=== PATIENT | male | born 1945 | race Caucasian/White ===

== ENCOUNTER → 2017-02-22 | Outpatient (CLI) | payer MEDICARE, BC ==
[~2017-02-22] MED LIST: ACIP20TA19; ALTA10CA10 PO; ASPI81; ATEN50TA PO; ATOR10; ATOR20TA15 PO; CALC1TAB87 PO; CENTTAB PO; LEXA10TA PO; META48.53 PO; NIFE30TA8 PO; PRIL20CA9 PO; RAMI10CA; VITA10002; VITA500S3 SL; VITA500T10
--- NOTE | 2017-02-25 21:41 | HM ---
Date Performed: 02/23/2017 Time Performed: 08:22:00 HOOKUP DATE: 02/23/17 08:22:00 AM Fri ANALYSIS START TIME: 02/23/2017 8:27:00 AM ANALYSIS END TIME: 02/24/2017 8:29:03 AM PATIENT AGE: 72 PATIENT HEIGHT PATIENT WEIGHT DRUG LIST PATIENT DIAGNOSIS: SYNCOPE TEST NARRATIVE: The patient's average heart rate was 63 BPM. Heart rates greater than 120 B PM were noted < 1% of the time. Heart rates less than 50 BPM were noted 9% of the time. No pause s exceeding 2.0 seconds were noted. 1 ventricular ectopics, which represented < 1% of the total b eat count, were noted. The highest ventricular ectopic frequency occurred from 09:00 PM to 10:00 PM Fri. During this time 1 VE(s) occurred. Ventricular ectopics were observed as 1 isolated beat(s) on ly. No couplets or runs were noted. 15 supraventricular ectopics, which represented < 1% of the total beat count, were noted. The highest supraventricular ectopic frequency occurred from 04:00 AM to 05:00 AM Sat. During this time 5 SVE(s) occurred. No episodes of ST depression (defined as -1 .0 mm or more) were noted in channel 1. No episodes of ST depression (defined as -1.0 mm or more) we re noted in channel 2. No episodes of ST depression (defined as -1.0 mm or more) were noted in chann el 3. TEST INTERPRETATION: Sinus rhythm PACs 2 short burst of SVT at a maximum rate of 130bpm observed. They were less than 5 sec No pause N o ventricular tachycardia observed Signed by : Latoya Vieira
== END ==
LOC: HCAV 08:35
PROVIDERS: ATTEND Family Medicine
DX: R55 Syncope and collapse (principal)
CPT/HCPCS: 93225; 93226

== ENCOUNTER 2017-03-04 12:27 | Observation (INO) | payer MEDICARE, BC ==
[~2017-03-04] VITALS: Ht 180.3 cm; Wt 82.0 kg
[2017-03-04] VITALS (8 sets, daily range): BP systolic 155–210; BP diastolic 61–89; PULSE 63–68; RESP 16–20; TEMP 97.6–97.8; O2SAT 97–100
[~2017-03-04 12:27] MED LIST changes: -ALTA10CA10 PO; -ATEN50TA PO; -ATOR20TA15 PO; -CALC1TAB87 PO; -CENTTAB PO; -LEXA10TA PO; -META48.53 PO; -NIFE30TA8 PO; -PRIL20CA9 PO; -VITA500S3 SL
[2017-03-04] MEDS ORDERED: SODIUM CHLOR 0.9% 1000 ML INJ 1,000 ML IV ONE (12:57)
--- NOTE | 2017-03-04 12:58 | PD ---
HPI Chief Complaint: Syncope/Near-Syncope Time Seen by Provider: 12:58 Travel History International Travel<30 days: No Contact w/Intl Traveler<30days: No Traveled to known affect area: No History of Present Illness HPI 72-year-old male with a history of hypertension, CAD, CABG 1 presents to the emergency department for evaluation of syncopal episode. The patient states that while he was in buddhist today he went from a standing to a sitting position and passed out for approximately 5 seconds. States that he had been standing singing him and was asymptomatic and the next thing he knew he had passed out onto the buddhist pew. Patient is accompanied by his neighbor who was sitting next to him what this occurred and states that it only lasted for 5 seconds, patient did not fall or hit his head, states he kind of leaned to the side and passed out on the pew. The patient denies any preceding symptoms of chest pain , shortness of breath, lightheadedness, dizziness, nausea, vomiting, numbness or tingling, weakness, bloody stool, black stool. States that he had a similar syncopal episode 3 weeks ago for which she saw his PCP Dr. Sibley. States that he had an outpatient head CT, carotid ultrasound and Holter monitor and was not called with any of the results. The patient states that he has been feeling well overall. Went for a 5 mile bike ride this morning, states that he rides a bicycle 8 miles every day. He does state that he has a tingling sensation on the right side of his head that has been going on for several years and has been evaluated as an outpatient and found to be unremarkable. No other complaints. PFSH Past Medical History High Cholesterol: Yes (CHOLESTEROL FINE NOW (PER PT) - HAS BEEN TAKING LIPITOR. ) Diminished Hearing: No Hypertension: Yes Past Surgical History Coronary Artery Bypass Graft: Yes (2001) Social History Alcohol Use: No Tobacco Use: No Allergies-Medications (Allergen,Severity, Reaction): Coded Allergies: Sulfa (Verified Adverse Reaction, Mild, NAUSEA, 03/04/17) Reported Meds & Prescriptions Reported Meds & Active Scripts Active Reported Altace (Ramipril) 10 Mg Cap 10 Mg PO DAILY Atorvastatin (Atorvastatin Calcium) 20 Mg Tab 20 Mg PO HS Lexapro (Escitalopram Oxalate) 10 Mg Tab 10 Mg PO BID Calcium 600 with Vitamin D (Calcium Carbonate-Cholecalciferol) 600-400 mg-Unit Tab 1 Tab PO BID Metamucil Original Texture (Psyllium Hydrophilic Mucilloid) 48.57 % Pow 1 Scoop PO TID PRN 1 rounded TEASPOON in 8 oz of liquid at the first sign of irregularity. Prilosec (Omeprazole) 20 Mg Cap 20 Mg PO DAILY Atenolol 50 Mg Tab 50 Mg PO DAILY Vitamin B-12 (Cyanocobalamin) 500 Mcg Subl 500 Mcg SL DAILY Centrum Silver (Multiple Vitamins W/ Minerals) 1 Tab 1 Tab PO DAILY Review of Systems Except as stated in HPI: all other systems reviewed are Neg Physical Exam Narrative GENERAL: Well-nourished and well-developed pleasant male patient in no acute distress who is nontoxic appearing. SKIN: Warm and dry. HEAD: Normocephalic and atraumatic. EYES: No injection, drainage, or hyphema noted. PERRLA. EOMI. ENT: No nasal drainage noted. Oropharynx is clear. NECK: Supple and the trachea is midline. CARDIOVASCULAR: Regular rate and rhythm. RESPIRATORY: Breath sounds are equal bilaterally with no accessory muscle use, wheezing, rhonchi, or crackles. GASTROINTESTINAL: Abdomen is soft, non-tender, and nondistended. MUSCULOSKELETAL: No obvious deformities, swelling, cyanosis, or ecchymosis is present throughout the upper and lower extremities. Patient has full range of motion without any signs of neurovascular compromise. Strength 5/5 upper and lower extremities equal bilaterally. NEUROLOGICAL: Awake, alert, and oriented. Normal speech and gait. Cranial nerves are grossly intact. Data Data Last Documented VS Vital Signs Date Time Temp Pulse Resp B/P Pulse Ox O2 Delivery O2 Flow Rate FiO2 03/04/17 13:18 65 16 172/83 03/04/17 12:47 98 03/04/17 12:31 97.6 Orders Electrocardiogram (03/04/17 12:57) Complete Blood Count With Diff (03/04/17 12:57) Comprehensive Metabolic Panel (03/04/17 12:57) Magnesium (Mg) (03/04/17 12:57) Troponin I (03/04/17 12:57) Chest, Single Ap (03/04/17 12:57) Ecg Monitoring (03/04/17 12:57) Iv Access Insert/Monitor (03/04/17 12:57) Oximetry (03/04/17 12:57) Sodium Chloride 0.9% Flush (Ns Flush) (03/04/17 13:00) Sodium Chlor 0.9% 1000 Ml Inj (Ns 1000 M (03/04/17 12:57) Orthostatic Vital Signs (03/04/17 13:03) Place In Observation (03/04/17 ) Vital Signs (Adult) Q4H (03/04/17 14:16) Activity Oob With Assistance (03/04/17 14:16) Superintendent Pressure / Telemetry .CONTINUOUS (03/04/17 14:16) Diet Regular Basic (03/04/17 Dinner) Sodium Chlor 0.9% 1000 Ml Inj (Ns 1000 M (03/04/17 15:00) Sodium Chloride 0.9% Flush (Ns Flush) (03/04/17 14:30) Sodium Chloride 0.9% Flush (Ns Flush) (03/04/17 21:00) Acetaminophen (Tylenol) (03/04/17 14:30) Ondansetron Inj (Zofran Inj) (03/04/17 14:30) Magnesium Hydroxide Liq (Milk Of Magnesi (03/04/17 14:30) Basic Metabolic Panel (Bmp) (03/05/17 06:00) Complete Blood Count With Diff (03/05/17 06:00) Resp Oxygen Brandan C Titrat 1-4 L (03/04/17 ) Pt Request For Service (03/04/17 14:16) Scd Bilateral/Knee High SHERI.BID (03/04/17 14:16) Naloxone Inj (Narcan Inj) (03/04/17 14:30) Admit Order (Ed Use Only) (03/04/17 14:16) Echo 2d Comp W/Dopp(Routine) (03/04/17 ) Labs Laboratory Tests Test 03/04/17 13:10 White Blood Count 11.6 TH/MM3 Red Blood Count 4.42 MIL/MM3 Hemoglobin 14.3 GM/DL Hematocrit 41.4 % Mean Corpuscular Volume 93.9 FL Mean Corpuscular Hemoglobin 32.5 PG Mean Corpuscular Hemoglobin 34.6 % Concent Red Cell Distribution Width 13.1 % Platelet Count 240 TH/MM3 Mean Platelet Volume 8.7 FL Neutrophils (%) (Auto) 89.4 % Lymphocytes (%) (Auto) 5.1 % Monocytes (%) (Auto) 4.6 % Eosinophils (%) (Auto) 0.5 % Basophils (%) (Auto) 0.4 % Neutrophils # (Auto) 10.4 TH/MM3 Lymphocytes # (Auto) 0.6 TH/MM3 Monocytes # (Auto) 0.5 TH/MM3 Eosinophils # (Auto) 0.1 TH/MM3 Basophils # (Auto) 0.0 TH/MM3 CBC Comment DIFF FINAL Differential Comment Sodium Level 137 MEQ/L Potassium Level 4.1 MEQ/L Chloride Level 103 MEQ/L Carbon Dioxide Level 27.8 MEQ/L Anion Gap 6 MEQ/L Blood Urea Nitrogen 13 MG/DL Creatinine 1.14 MG/DL Estimat Glomerular Filtration 63 ML/MIN Rate Random Glucose 122 MG/DL Calcium Level 9.3 MG/DL Magnesium Level 2.2 MG/DL Total Bilirubin 0.5 MG/DL Aspartate Amino Transf 23 U/L (AST/SGOT) Alanine Aminotransferase 29 U/L (ALT/SGPT) Alkaline Phosphatase 87 U/L Troponin I LESS THAN 0.02 NG/ML Total Protein 7.6 GM/DL Albumin 4.1 GM/DL [facility] Medical Decision Making Medical Screen Exam Complete: Yes Emergency Medical Condition: Yes Differential Diagnosis Dehydration versus electrolyte abnormality versus orthostatic hypotension versus arrhythmia versus other Narrative Course 72-year-old male presents to the emergency department for evaluation of syncopal episode. Patient is afebrile. He is initially noted to be hypertensive with a blood pressure 210/89. Otherwise vital signs within normal limits. Physical examination is unremarkable. Patient is very well overall. IV access is obtained, labs were drawn and sent. Patient is placed on cardiac telemetry and pulse oximetry monitoring. I did review the MR which shows he had a Holter monitor 02/22/17 which showed sinus rhythm with PACs, too short bursts of SVT with a max heart rate of 130 bpm lasting less than 5 seconds, no positive, no V. tach. I was able to look up his head CT and carotid ultrasound on [facility]. His Head CT without contrast performed was negative for any acute abnormalities. Ultrasound of the carotid arteries 02/22/17 which shows echogenic atherosclerotic plaque in each carotid bulb extending into the proximal internal carotid artery on each side. This is more prominent on the right. There appears to be a 50-69% diameter stenosis by velocity measurements on the right side and a slightly greater than 50% diameter stenosis on the left by velocity measurement. Antegrade flow is noted in both vertebral arteries. EKG shows sinus rhythm with first-degree AV block, no acute ST elevations or depressions. CBC shows a slightly elevated white blood cell count 11.6. CMP is unremarkable. Troponin is less than 0.02. Chest x-ray shows mild cardiomegaly but no evidence of congestive heart failure. Patient has remained stable without complaint while here in the emergency department. He'll be kept under observation for further evaluation and management of syncope. I discussed the case with my attending physician Dr. Lipscomb who is aware of the patients history, physical examination findings, and treatment plan. Physician Communication Physician Communication I spoke with Dr. Nakia JOEL who agrees to this patient under his service for observation. Diagnosis Primary Impression: Syncope Qualified Code: R55 - Syncope, unspecified syncope type Admitting Information Admitting Physician Requests: Observation Letty Pena Mar 04, 2017 12:58
[2017-03-04] MEDS ORDERED: SODIUM CHLORIDE 0.9% FLUSH 10 ML FLUSH IVF PRN (13:00)
[2017-03-04 13:32] LABS: AUTOMATED NEUTROPHIL # 10.4 TH/MM3 (1.8-7.7); BASOPHIL % 0.4 % (0.0-2.0); EOSINOPHIL # 0.1 TH/MM3 (0-0.4); EOSINOPHIL % 0.5 % (0.0-4.0); HEMATOCRIT 41.4 % (39.0-51.0); HEMO FLAGS DIFF FINAL; LYMPH % 5.1 % (9.0-44.0); LYMPHOCYTE # 0.6 TH/MM3 (1.0-4.8); MEAN CELL VOLUME 93.9 FL (80.0-100.0); MEAN CORPUSCULAR HEMOGLOBIN 32.5 PG (27.0-34.0); MEAN CORPUSCULAR HGB CONC 34.6 % (32.0-36.0); MONO % 4.6 % (0.0-8.0); NEUT % 89.4 % (16.0-70.0); PLATELET COUNT 240 TH/MM3 (150-450); RED BLOOD COUNT 4.42 MIL/MM3 (4.50-5.90); RED CELL DISTRIBUTION WIDTH 13.1 % (11.6-17.2); WHITE BLOOD COUNT 11.6 TH/MM3 (4.0-11.0)
--- NOTE | 2017-03-04 13:37 | RADRPT ---
EXAM DATE/TIME: 03/04/2017 12:55 [facility] COMPARISON: No previous studies available for comparison. INDICATIONS : Syncope MEDICAL HISTORY : None. SURGICAL HISTORY : CABG. ENCOUNTER: Initial ACUITY: 1 day PAIN SCORE: 0/10 LOCATION: chest FINDINGS: A single view of the chest demonstrates the lungs to be symmetrically aerated without evidence of mas s, infiltrate or effusion. The cardiac silhouette appears mildly enlarged. There multiple intact medi an sternotomy wires present.. Osseous structures are intact. CONCLUSION: Mild cardiomegaly. No evidence of congestive heart failure or acute pulmonary disease.. Lindsey Barillas MD on March 04, 2017 at 13:35 Board Certified Radiologist. This report was verified electronically.
[2017-03-04 13:46] LABS: ANION GAP 6 MEQ/L (5-15); AST (GOT) 23 U/L (15-37); BICARBONATE 27.8 MEQ/L (21.0-32.0); BLOOD UREA NITROGEN 13 MG/DL (7-18); CHLORIDE 103 MEQ/L (98-107); GLOMERULAR FILTRATION RATE 63 ML/MIN (>89); MAGNESIUM 2.2 MG/DL (1.5-2.5); POTASSIUM 4.1 MEQ/L (3.5-5.1); SODIUM (NA) 137 MEQ/L (136-145)
[2017-03-04 13:51] LABS: ALKALINE PHOSPHATASE 87 U/L (45-117); ALT (GPT) 29 U/L (12-78); TOTAL BILIRUBIN ADULT 0.5 MG/DL (0.2-1.0)
[2017-03-04] MEDS ORDERED: ATOR20TA15 PO (14:17)
[2017-03-04] MEDS ORDERED: VITA500S3 SL (14:17)
[2017-03-04] MEDS ORDERED: PRIL20CA9 PO (14:17)
[2017-03-04] MEDS ORDERED: CENTTAB PO (14:17)
[2017-03-04] MEDS ORDERED: META48.53 PO (14:17)
[2017-03-04] MEDS ORDERED: CALC1TAB87 PO (14:17)
[2017-03-04] MEDS ORDERED: ATEN50TA PO (14:17)
[2017-03-04] MEDS ORDERED: LEXA10TA PO (14:17)
[2017-03-04] MEDS ORDERED: ALTA10CA10 PO (14:17)
[2017-03-04] MEDS ORDERED: ONDANSETRON HCL 4 MG/2 ML VIAL IVP PRN (14:30)
[2017-03-04] MEDS ORDERED: SODIUM CHLORIDE 0.9% FLUSH 10 ML FLUSH IV FLUSH PRN (14:30)
[2017-03-04] MEDS ORDERED: MAGNESIUM HYDROXIDE SUSP 30 ML CUP PO PRN (14:30)
[2017-03-04] MEDS ORDERED: ACETAMINOPHEN 325 MG TAB PO PRN (14:30)
[2017-03-04] MEDS ORDERED: NALOXONE HCL 0.4 MG/ML AMP IV PRN (14:30)
[2017-03-04] MEDS ORDERED: NIFEdipine 30 MG SUSTAINED RELEASE TAB PO ONE (15:15)
[2017-03-04] MEDS ORDERED: NON-FORMULARY DRUG (Psyllium Powder (Metamucil Original Texture) 1 SCOOP) PO PRN (15:15)
--- NOTE | 2017-03-04 15:20 | HHI.HP ---
[facility] Jeff Sibley MD Admission Diagnosis Syncope Diagnoses: Chief Complaint: syncope Travel History International Travel<30 Days: No Contact w/Intl Traveler <30 Da: No Traveled to Known Affected Are: No History of Present Illness 72-year-old with history of HTN, HLD, CAD s/p CABG 2001, anxiety, presents with acute onset of syncope today 03/04/17 while at taoist. The patient reports he stood for a hymn, then sat down in the pew, was reading the program, when he all of a sudden passed out and slumped over in the pew. A friend was sitting next to him who says the episode only lasted 5 seconds. He woke up with profuse diaphoresis. Denies any chest pain, palpitations, shortness of breath, lightheadedness, or dizziness prior to the episode. Denies any incontinence or tongue biting. Denies any confusion after the episode. Denies hitting his head. [facility] was called, recommended he go to the hospital however declined transportation, went home first to collect his medical records and now arrives to the ED via friend's private vehicle. The patient reports 3 weeks ago he had a similar episode where he became acutely dizzy and fell to the floor. He saw his PCP Dr. Jeff Sibley on 02/16/17, who ordered outpatient work up including head CT, carotid U/S and holter which were mostly unremarkable. His firefighter is Dr. Chowdary. Of note, the patient does take atenolol 50mg daily. Review of Systems Except as stated in HPI: all other systems reviewed are Neg Past Family Social History Past Medical History Hypertension Hyperlipidemia CAD GERD Anxiety Past Surgical History CABG in 2001 Tonsillectomy age 5 Reported Medications Altace (Ramipril) 10 Mg Cap 10 Mg PO DAILY Atorvastatin (Atorvastatin Calcium) 20 Mg Tab 20 Mg PO HS Lexapro (Escitalopram Oxalate) 10 Mg Tab 10 Mg PO BID Calcium 600 with Vitamin D (Calcium Carbonate-Cholecalciferol) 600-400 mg-Unit Tab 1 Tab PO BID Metamucil Original Texture (Psyllium Hydrophilic Mucilloid) 48.57 % Pow 1 Scoop PO TID PRN 1 rounded TEASPOON in 8 oz of liquid at the first sign of irregularity. Prilosec (Omeprazole) 20 Mg Cap 20 Mg PO DAILY Atenolol 50 Mg Tab 50 Mg PO DAILY Vitamin B-12 (Cyanocobalamin) 500 Mcg Subl 500 Mcg SL DAILY Centrum Silver (Multiple Vitamins W/ Minerals) 1 Tab 1 Tab PO DAILY Allergies: Coded Allergies: Sulfa (Verified Adverse Reaction, Mild, NAUSEA, 03/04/17) Active Ordered Medications Current Medications Medications (Trade) Dose Ordered Sig/Lou Route Start Time Stop Time Status Last Admin (NS 1000 ml Inj) 1,000 ml @ 100 mls/hr Q10H IV 03/04/17 15:00 (NS Flush) 2 ml UNSCH PRN IV FLUSH 03/04/17 14:30 (NS Flush) 2 ml BID IV FLUSH 03/04/17 21:00 (Tylenol) 650 mg Q4H PRN PO 03/04/17 14:30 (Zofran Inj) 4 mg Q6H PRN IVP 03/04/17 14:30 (Milk Of Magnesia Liq) 30 ml Q12H PRN PO 03/04/17 14:30 (Narcan Inj) 0.4 mg UNSCH PRN IV 03/04/17 14:30 Family History Father lived to age 91, no significant medical problems Mother with Parkinson's, in her 70s Social History Denies any tobacco, alcohol, or illicit drug use. Patient is very active, rides bicycle 8miles a day Physical Exam Vital Signs Vital Signs Date Time Temp Pulse Resp B/P Pulse Ox O2 Delivery O2 Flow Rate FiO2 03/04/17 13:18 65 16 172/83 03/04/17 13:18 70 182/87 03/04/17 13:14 64 16 162/74 03/04/17 13:14 64 03/04/17 13:14 03/04/17 13:13 64 16 162/74 03/04/17 12:47 18 98 03/04/17 12:31 97.6 63 16 210/89 100 Physical Exam GENERAL: Well-developed, well-nourished male patient in [facility]. SKIN: Warm and dry. HEAD: Atraumatic. Normocephalic. EYES: Pupils equal and round. No scleral icterus. No injection or drainage. ENT: No nasal bleeding or discharge. Mucous membranes pink and moist. NECK: Trachea midline. CARDIOVASCULAR: Regular rate and rhythm. No murmur appreciated. RESPIRATORY: No accessory muscle use. Clear to auscultation. Breath sounds equal bilaterally. GASTROINTESTINAL: Abdomen soft, non-tender, nondistended. Normoactive bowel sounds x4. MUSCULOSKELETAL: Extremities without clubbing, cyanosis, or edema. No obvious deformities. NEUROLOGICAL: Awake and alert. No obvious cranial nerve deficits. Motor grossly within normal limits. 5/5 muscle strength in the arms and legs. Normal speech. PSYCHIATRIC: Appropriate mood and affect; insight and judgment normal. Laboratory Laboratory Tests Test 03/04/17 13:10 White Blood Count 11.6 Red Blood Count 4.42 Hemoglobin 14.3 Hematocrit 41.4 Mean Corpuscular Volume 93.9 Mean Corpuscular Hemoglobin 32.5 Mean Corpuscular Hemoglobin 34.6 Concent Red Cell Distribution Width 13.1 Platelet Count 240 Mean Platelet Volume 8.7 Neutrophils (%) (Auto) 89.4 Lymphocytes (%) (Auto) 5.1 Monocytes (%) (Auto) 4.6 Eosinophils (%) (Auto) 0.5 Basophils (%) (Auto) 0.4 Neutrophils # (Auto) 10.4 Lymphocytes # (Auto) 0.6 Monocytes # (Auto) 0.5 Eosinophils # (Auto) 0.1 Basophils # (Auto) 0.0 CBC Comment DIFF FINAL Differential Comment Sodium Level 137 Potassium Level 4.1 Chloride Level 103 Carbon Dioxide Level 27.8 Anion Gap 6 Blood Urea Nitrogen 13 Creatinine 1.14 Estimat Glomerular Filtration 63 Rate Random Glucose 122 Calcium Level 9.3 Magnesium Level 2.2 Total Bilirubin 0.5 Aspartate Amino Transf 23 (AST/SGOT) Alanine Aminotransferase 29 (ALT/SGPT) Alkaline Phosphatase 87 Troponin I LESS THAN 0.02 Total Protein 7.6 Albumin 4.1 Result Diagram: 03/04/17 1310 03/04/17 1310 Imaging [facility]: Holter monitor 02/22/17 which showed sinus rhythm with PACs, too short bursts of SVT with a max heart rate of 130 bpm lasting less than 5 seconds, no pauses, no V. tach. Head CT without contrast performed 02/22/17 was negative for any acute abnormalities. Ultrasound of the carotid arteries 02/22/17 which shows echogenic atherosclerotic plaque in each carotid bulb extending into the proximal internal carotid artery on each side. This is more prominent on the right. There appears to be a 50-69% diameter stenosis by velocity measurements on the right side and a slightly greater than 50% diameter stenosis on the left by velocity measurement. Antegrade flow is noted in both vertebral arteries. Last Impressions Chest X-Ray 03/04/17 1257 Signed Impressions: Service Date/Time: Saturday, March 04, 2017 12:55 - CONCLUSION: Mild cardiomegaly. No evidence of congestive heart failure or acute pulmonary disease.. Lindsey Barillas MD Assessment and Plan Assessment and Plan 72-year-old with history of HTN, HLD, CAD s/p CABG 2001, anxiety, presents with acute onset of syncope today 03/04/17 while at taoist. Syncope: work up in progress, possible etiology is patient's atenolol. Similar episode 3 weeks ago, outpatient work up included Holter 02/22 which showed NSR with PACs, 2 short bursts of SVT with a max heart rate of 130 bpm lasting less than 5 seconds, no pauses, no V. tach. Head CT 02/22 unremarkable. Carotid U/S showed atherosclerotic plaque, 50-69% stenosis on the right, 50% stenosis on the left. -EKG reviewed and compared to patient's prior EKGs, stable, shows sinus rhythm with 1st degree AV block, RBBB, slight LAD, no acute ST changes. -CBC and BMP essentially unremarkble -orthostatics negative in the ER -check echocardiogram -monitor on telemetry -discussed f/up with firefighter Dr. Chowdary to consider event monitor vs loop recorder -patient instructed no driving for at least 1 month Accelerated Hypertension & Hypertensive Urgency: BP 210/89 upon arrival to the ER. -continue patient's ramipril -hold patient's atenolol as possibly contributing to syncope -start nifedipine 30mg daily, titrate dose as needed -monitor BP, adjust antihypertensives as needed Hyperlipidemia: chronic -continue patient's statin CAD s/p CABG 2001: chronic -continue home medications -outpatient f/up with patient's firefighter Dr. Chowdary Anxiety: chronic -continue patient's Lexapro DVT Prophylaxis: teds/SCDs Written by Odalys Charbel, acting as scribe for Dr. Yee on 03/04/17 at 15:19. All or portions of this note were transcribed by [email or web address] Swenson. I , Dr. Raheem Yee personally performed the history, physical exam, and medical decision making; and confirmed the accuracy of the information in the transcribed note. Authenticated by Dr. Raheem Yee on 03/04/17 at 22:53. Discussed Condition With Patient, Patient's friend at bedside, ER Odalys Pak PA-C Mar 04, 2017 15:20 Josefina Yee DO Mar 04, 2017 22:54
[2017-03-04] MEDS ORDERED: PSYLLIUM FIBER SF/GF 6 GM POWD PKT PO PRN (15:30)
[2017-03-04] MEDS ORDERED: PILL SPLITTER OTHER PRN (15:30)
[2017-03-04] MEDS: SODIUM CHLOR 0.9% 1000 ML INJ 1,000 ML IV SCH (17:02)
[2017-03-04] MEDS ORDERED: RAMIPRIL 5 MG CAP PO SCH (18:00)
[2017-03-04] MEDS: SODIUM CHLORIDE 0.9% FLUSH 10 ML FLUSH IV FLUSH SCH (20:50)
[2017-03-04] MEDS: ESCITALOPRAM OXALATE 10 MG TAB PO SCH (20:56)
[2017-03-04] MEDS ORDERED: ATORVASTATIN 20 MG TAB PO SCH (21:00)
--- NOTE | 2017-03-04 22:01 | EC ---
Study Study Date:03/04/2017 STUDY CONCLUSIONS SUMMARY - Left ventricle: The cavity size was normal. Wall thickness was normal. Systolic function was normal. The estimated ejection fraction was in the range of 55% to 60%. Wall motion was normal; there were no regional wall motion abnormalities. - Aortic valve: Valve area: 2.61cm^2 (Vmax). If LV function is below 40, please consider prescribing an ACEI or ARB or document rationale for non-use. PROCEDURE DATA STUDY STATUS: Elective. Procedure: Transthoracic echocardiography. Image quality was good. Scanning was performed from the parasternal, apical, and subcostal acoustic windows. Study completion: The patient tolerated the procedure well. Transthoracic echocardiography. M-mode, complete 2D, complete spectral Doppler, and color Doppler. Height: Height: 71in. Weight: Weight: 179.6lb. Body mass index: BMI: 25.1kg/m^2. Body surface area: BSA: 2.02m^2. Patient status: Inpatient. CARDIAC ANATOMY LEFT VENTRICLE: The cavity size was normal. Wall thickness was normal. Systolic function was normal. The estimated ejection fraction was in the range of 55% to 60%. Wall motion was normal; there were no regional wall motion abnormalities. AORTIC VALVE: Trileaflet; normal thickness leaflets. Doppler: Transvalvular velocity was within the normal range. There was no stenosis. No regurgitation. Valve area: 2.61cm^2 (Vmax). Indexed valve area: 1.29cm^2/m^2 (Vmax). AORTA: Aortic root: The aortic root was normal in size. MITRAL VALVE: Structurally normal valve. Doppler: Transvalvular velocity was within the normal range. There was no evidence for stenosis. No regurgitation. Peak gradient: 5mm Hg (D). LEFT ATRIUM: The atrium was normal in size. RIGHT VENTRICLE: The cavity size was normal. Wall thickness was normal. PULMONIC VALVE: Doppler: Transvalvular velocity was within the normal range. There was no evidence for stenosis. No regurgitation. TRICUSPID VALVE: Structurally normal valve. Doppler: Transvalvular velocity was within the normal range. No regurgitation. PULMONARY ARTERY: The main pulmonary artery was normal-sized. Systolic pressure was within the normal range. RIGHT ATRIUM: The atrium was normal in size. PERICARDIUM: There was no pericardial effusion. SYSTEMIC VEINS: Inferior vena cava: The vessel was normal in size. Patient weight: 179.6lb _Ejection fraction:_ 65-75% _Fractional shortening:_ 32% up to 5Kg 5-11.5Kg 11.6-22.9Kg 23-45Kg 45-57Kg Aortic Root 7-13 <17 13-22 17-27 17-27 LA diam 6-13 <23 24-38 33-47 37-40 RVID 10-17 7-15 7-15 7-18 8-17 LVIDd 12-22 <32 24-38 33-47 37-40 LVPW 2-4 3-6 5-7 6-8 7-8 IVS 2-4 3-6 5-7 6-8 7-8 BASIC MEASUREMENTS ADULT NORMAL Left ventricle LV internal dimension, ED, chordal *53.7 mm 43-52 level, PLAX LV internal dimension, ES, chordal *38.6 mm 23-38 level, PLAX Fractional shortening, chordal level, *28 % >29 PLAX LV posterior wall thickness, ED 8.23 mm IVS/LVPW ratio, ED 1.02 <1.3 Ventricular septum Septal thickness, ED 8.38 mm Aortic valve Leaflet separation 17 mm 15-26 BASIC MEASUREMENTS ADULT NORMAL Aortic valve Leaflet separation 17 mm 15-26 Aorta Root diameter, ED 32 mm 20-37 Left atrium Anterior-posterior dimension, ES 37 mm 19-40 Anterior-posterior dimension index, ES 1.83 cm/m^2 <2.2 LA/aortic root ratio 1.16 DOPPLER MEASUREMENTS ADULT NORMAL Aortic valve Peak velocity, S 136 cm/s Valve area, Vmax 2.61 cm^2 Valve area index, Vmax 1.29 cm^2/m^2 Mitral valve Peak E-wave velocity 112 cm/s Peak A-wave velocity 89.3 cm/s Deceleration time *257 ms 150-230 Peak gradient, D 5 mm Hg Peak E/A ratio 1.3 Pulmonic valve Peak velocity, S 107 cm/s Regurgitant velocity, ED 93.7 cm/s LEGEND: Mean values are shown as u=mean value. Asterisk (*) stone values outside specified normal range. Prepared and signed by Chiki Felix [id number]
[2017-03-05 00:05] VITALS: BP 128/64; PULSE 66; RESP 18; TEMP 98.2; O2SAT 96
[2017-03-05] MEDS: SODIUM CHLOR 0.9% 1000 ML INJ 1,000 ML IV SCH (01:00)
[2017-03-05 04:15] VITALS: BP 141/71; PULSE 59; RESP 18; TEMP 98.2; O2SAT 97
[2017-03-05 05:04] LABS: AUTOMATED NEUTROPHIL # 6.6 TH/MM3 (1.8-7.7); BASOPHIL % 0.4 % (0.0-2.0); EOSINOPHIL # 0.1 TH/MM3 (0-0.4); HEMATOCRIT 39.5 % (39.0-51.0); HEMO FLAGS DIFF FINAL; LYMPH % 15.1 % (9.0-44.0); LYMPHOCYTE # 1.3 TH/MM3 (1.0-4.8); MEAN CELL VOLUME 94.9 FL (80.0-100.0); MEAN CORPUSCULAR HEMOGLOBIN 32.9 PG (27.0-34.0); MEAN CORPUSCULAR HGB CONC 34.6 % (32.0-36.0); MONO % 9.1 % (0.0-8.0); NEUT % 74.4 % (16.0-70.0); PLATELET COUNT 228 TH/MM3 (150-450); RED BLOOD COUNT 4.16 MIL/MM3 (4.50-5.90); RED CELL DISTRIBUTION WIDTH 13.5 % (11.6-17.2); WHITE BLOOD COUNT 8.9 TH/MM3 (4.0-11.0)
[2017-03-05 05:18] LABS: BICARBONATE 28.3 MEQ/L (21.0-32.0)
[2017-03-05 08:00] VITALS: PULSE 55
[2017-03-05 08:12] VITALS: BP 150/68; PULSE 65; RESP 20; TEMP 98; O2SAT 94
[2017-03-05] MEDS ORDERED: CYANOCOBALAMIN 1,000 MCG TAB PO SCH (09:00)
[2017-03-05] MEDS ORDERED: NIFEdipine 30 MG SUSTAINED RELEASE TAB PO SCH (09:00)
[2017-03-05] MEDS ORDERED: RAMIPRIL 5 MG CAP PO SCH (09:00)
[2017-03-05] MEDS ORDERED: PANTOPRAZOLE SOD 20 MG DELAYED RELEASE TAB PO SCH (09:00)
[2017-03-05] MEDS ORDERED: NON-FORMULARY DRUG (Omeprazole (Prilosec) 20 MG) PO SCH (09:00)
[2017-03-05] MEDS ORDERED: NIFE30TA8 PO (09:09)
[2017-03-05] MEDS: ESCITALOPRAM OXALATE 10 MG TAB PO SCH (09:15)
[2017-03-05] MEDS: SODIUM CHLORIDE 0.9% FLUSH 10 ML FLUSH IV FLUSH SCH (09:15)
--- NOTE | 2017-03-05 09:32 | HHI.PR ---
Subjective Remarks Follow up for syncope. Patient any dizziness or any lightheadedness. No issues overnight. Patient has been ambulatory. Patient has a follow-up appointment with his PCP, Dr. Sibley, on Sunday. Objective Vitals Vital Signs Date Time Temp Pulse Resp B/P Pulse Ox O2 Delivery O2 Flow Rate FiO2 03/05/17 08:12 98.0 65 20 150/68 94 03/05/17 08:00 55 03/05/17 04:15 98.2 59 18 141/71 97 03/05/17 00:05 98.2 66 18 128/64 96 03/04/17 18:56 97.8 66 18 158/73 97 03/04/17 16:19 97.6 65 20 165/76 97 03/04/17 16:03 68 16 155/61 98 Room Air 03/04/17 14:56 97 21 03/04/17 13:18 65 16 172/83 03/04/17 13:18 70 182/87 03/04/17 13:14 64 16 162/74 03/04/17 13:14 64 03/04/17 13:14 03/04/17 13:13 64 16 162/74 03/04/17 12:47 18 98 03/04/17 12:31 97.6 63 16 210/89 100 Result Diagram: 03/05/17 0440 03/05/17 0440 Imaging Last Impressions Chest X-Ray 03/04/17 1257 Signed Impressions: Service Date/Time: Saturday, March 04, 2017 12:55 - CONCLUSION: Mild cardiomegaly. No evidence of congestive heart failure or acute pulmonary disease.. Lindsey Barillas MD Objective Remarks GENERAL: Well-developed well-nourished. In no acute distress. SKIN: Warm and dry. No lesions noted. HEENT: Normocephalic. Pupils equal and round. Mucous membranes pink and moist. CARDIOVASCULAR: Regular rate and rhythm. No murmur appreciated. RESPIRATORY: No accessory muscle use. Clear to auscultation. Breath sounds equal bilaterally. GASTROINTESTINAL: Abdomen soft, non-tender, nondistended. Bowel sounds x4. MUSCULOSKELETAL: No obvious deformities. No clubbing or cyanosis. No edema. NEUROLOGICAL: Awake and alert. No focal neurological deficits. Moves upper and lower extremities spontaneously. Normal speech. PSYCHIATRIC: Appropriate mood and affect; insight and judgment normal. A/P Assessment and Plan 72-year-old with history of HTN, HLD, CAD s/p CABG 2001, anxiety, presents with acute onset of syncope today 03/04/17 while at [facility]. Syncope: possible etiology is patient's atenolol. Similar episode 3 weeks ago, outpatient work up included Holter 02/22 which showed NSR with PACs, 2 short bursts of SVT with a max heart rate of 130 bpm lasting less than 5 seconds, no pauses, no V. tach. Head CT 02/22 unremarkable. Carotid U/S 02/22 showed atherosclerotic plaque, 50-69% stenosis on the right, 50% stenosis on the left. -EKG stable compared to previous, shows sinus rhythm with 1st degree AV block , RBBB, slight LAD, no acute ST changes. -CBC and BMP essentially unremarkable -orthostatics negative in the ER -Echocardiogram normal systolic function with EF 5560 % -monitor on telemetry -discussed f/up with work and family life consultant Dr. Chowdary to consider event monitor vs loop recorder -patient instructed no driving until cleared by PCP Accelerated Hypertension & Hypertensive Urgency: BP 210/89 upon arrival to the ER. -continue patient's ramipril -hold patient's atenolol as possibly contributing to syncope -started nifedipine 30mg daily, with good effect -monitor BP, adjust antihypertensives, follow-up with PCP for further dose adjustment Hyperlipidemia: chronic -continue patient's statin CAD s/p CABG 2002: chronic -continue home medications -outpatient f/up with patient's work and family life consultant Dr. Chowdary Anxiety: chronic -continue patient's Lexapro DVT Prophylaxis: teds/SCDs Written by Mitchel Jc, acting as scribe for Dr. Yee on 03/05/17 at 09:32. All or portions of this note were transcribed by scribe FIGUEROA Root. I, Dr. Rhaeem Yee personally performed the history, physical exam, and medical decision making; and confirmed the accuracy of the information in the transcribed note. Authenticated by Dr. Raheem Yee on 03/05/17 at 22:12. Discharge Planning Discharge patient to home Condition on discharge: Improved Heart healthy Diet as tolerated Regular activity, no driving Rx written: Nifedipine Follow-up with primary care physician Mitchel Jc Mar 05, 2017 09:32 Josefina Yee DO Mar 05, 2017 22:12
--- NOTE | 2017-03-05 14:13 | EKG ---
Date Performed: 03/04/2017 Time Performed: 13:14:05 PTAGE: 72 years EKG: Sinus rhythm WITH FIRST DEGREE AV BLOCK MARKED LEFT AXIS DEVIATION RIGHT BUNDLE BRANCH BLOCK POSSIBLE LEFT VENTRI CULAR HYPERTROPHY POSSIBLE SEPTAL MYOCARDIAL INFARCTION Since the prior tracing, the left axis deviat ion is new, but there is no other significant serial change. ABNORMAL ECG PREVIOUS TRACING : 11/13/2006 02.13 DOCTOR: Nina Alexander Interpretating Date/Time 03/05/2017 14:12:08
== END 2017-03-05 14:58 | disposition home or self-care (01) ==
LOC: NEPC 12:27 → NEDA 14:19 → NEPGCP 16:10
PROVIDERS: ADMIT Hospitalist; ATTEND Hospitalist
DX: R55 Syncope and collapse (principal); Z95.1 Presence of aortocoronary bypass graft; I25.10 Atherosclerotic heart disease of native coronary artery without angina pectoris; I11.9 Hypertensive heart disease without heart failure; E78.00 Pure hypercholesterolemia, unspecified; Z79.899 Other long term (current) drug therapy; I44.0 Atrioventricular block, first degree; D72.829 Elevated white blood cell count, unspecified; R61 Generalized hyperhidrosis; E78.5 Hyperlipidemia, unspecified; K21.9 Gastro-esophageal reflux disease without esophagitis; I45.10 Unspecified right bundle-branch block; F41.9 Anxiety disorder, unspecified
CPT/HCPCS: 71010; 80048; 80053; 83735; 84484; 85025; 93005; 93306; 96360; 99285; G0378; J7030